=== PATIENT | male | born 1985 | race Hispanic/Latino ===

== ENCOUNTER 2018-04-21 20:52 | Inpatient (IN) | payer SELFPAY ==
[2018-04-21] MEDS ORDERED: Adacel (T-DAP) 0.5 ML VIAL ONE (21:26)
[2018-04-21] MEDS ORDERED: HYDROcodone/Acetaminophen 10/325 mg Tablet ONE (22:06)
--- NOTE | 2018-04-21 22:13 | RAD ---
THREE VIEWS RIGHT HAND: 04/21/18 HISTORY: Laceration to fingers of right hand. FINDINGS: No fracture or dislocation is seen. There are lucencies seen involving the proximal portions of the s econd through fourth fingers likely related to laceration. No radiopaque foreign body is seen. No oth er findings. IMPRESSION: Findings suggestive of laceration involving the second through fourth digits without evidence of an u nderlying fracture or radiopaque foreign body. POS: [facility]
[2018-04-21] MEDS ORDERED: Gentamicin 80 MG/2 ML VIAL ONE (22:19)
[2018-04-21] MEDS ORDERED: CEFAZOLIN/Water 2 GM/20 ML SYRINGE ONE (22:21)
[2018-04-21 22:41] LABS: #Basophils 0.1 thou/uL (0.0-0.2); #Eosinphils 0.1 thou/uL (0.0-0.7); #Lymphocytes 2.3 thou/uL (1.20-3.40); #Monocytes 0.5 thou/uL (0.11-0.59); #Neutrophils 6.4 thou/uL (1.40-6.50); %Basophils 0.6 % (0.0-1.0); %Lymphocytes 24.1 % (21.0-51.0); %Monocytes 5.7 % (0.0-10.0); %Neutrophils 68.7 % (42.0-75.0); Hemoglobin 16.3 g/dL (14.0-18.0); Mean Corpuscular HGB CONC 36.2 g/dL (32.0-36.0); Mean Corpuscular Hemoglobin 32.9 pg (27.0-31.0); Mean Corpuscular Volume 90.8 fL (78.0-98.0); Mean Platelet Volume 9.7 fL (7.4-10.4); Platelet Count 179 thou/uL (130-400); RBC Distribution Width 11.3 % (11.5-14.5); Red Blood Cell (RBC) Count 4.97 mill/uL (4.70-6.10); White Blood Cell (WBC) Count 9.3 thou/uL (4.8-10.8)
[2018-04-21] MEDS ORDERED: Fentanyl 100 MCG/2 ML VIAL ONE (22:47)
[2018-04-21 22:52] LABS: INR-International Normal Ratio 0.9; PTT 30.6 SEC (22.9-36.1); Prothrombin Time 12.7 SEC (12.0-14.7)
[2018-04-21 22:59] LABS: Anion Gap 11 mmol/L (10-20); BUN (Urea Nitrogen) 6 mg/dL (8.9-20.6); Calc. Creatinine Clearance 0 mL/min (70-130); Calcium 9.4 mg/dL (7.8-10.44); Carbon Dioxide 23 mmol/L (22-29); Chloride 108 mmol/L (98-107); Estimated GFR-MDRD 83; Glucose 97 mg/dL (70-105); Potassium 4.2 mmol/L (3.5-5.1); Sodium 138 mmol/L (136-145)
[2018-04-21] MEDS ORDERED: Gentamicin Sulfate 80 MG in Premix Bag 1 BAG IVPB SCH (23:00)
[2018-04-22] MEDS ORDERED: Bupivacaine 0.25% HCL 30 ML VIAL ONE
[2018-04-22] MEDS ORDERED: Sodium Chloride 0.9% 50 ML ONE
[2018-04-22] MEDS ORDERED: Bupivacaine PF 0.5% 30 ML VIAL ONE (00:01)
[2018-04-22] MEDS ORDERED: Fentanyl 100 MCG/2 ML VIAL ONE ×2 (00:54→02:54)
[2018-04-22] MEDS ORDERED: Bacitracin Zinc Ointment 30 gm TUBE ONE (03:24)
[2018-04-22] MEDS ORDERED: Meperidine HCl/PF 25 MG/ML VIAL ONE (03:57)
[2018-04-22] MEDS ORDERED: Morphine 4 MG/ML VIAL SLOW IVP PRN (04:01)
[2018-04-22] MEDS ORDERED: Acetaminophen 325 MG TAB PO PRN (04:01)
[2018-04-22] MEDS ORDERED: Promethazine HCl 25 MG/ML VIAL IM PRN (04:01)
[2018-04-22] MEDS ORDERED: Ondansetron ODT 4 MG TAB PO PRN (04:01)
[2018-04-22] MEDS ORDERED: Ketorolac Tromethamine 30 MG/ML VIAL IVP PRN (04:07)
[2018-04-22] MEDS ORDERED: Meperidine HCl/PF 25 MG/ML VIAL IM PRN (04:07)
[2018-04-22] MEDS ORDERED: Communication Order-Pharmacy FS SCH (04:15)
[2018-04-22] MEDS ORDERED: TETANUS AND DIPHTHERIA TOX/PF 0.5 ML DISP.SYRIN IM SCH (04:15)
[2018-04-22 04:38] LABS: Amphetamine Not Detected (NotDetected); Barbiturates Screen Not Detected (NotDetected); Benzodiazepine Screen Not Detected (NotDetected); Cocaine Metabolite Screen Not Detected (NotDetected); Medtox Control Line Valid? VALID (VALID); Medtox Reader # READER 4; Methadone Not Detected (NotDetected); Methamphetamine Not Detected (NotDetected); Opiate Screen Detected (NotDetected); Oxycodone Screen Not Detected (NotDetected); Phencyclidine (PCP) Not Detected (NotDetected); THC/Cannabinoid Screen Detected (NotDetected); Tricyclic Screen Not Detected (NotDetected)
[2018-04-22] MEDS ORDERED: Vancomycin HCl 1.5 GM in Sodium Chloride 0.9% 250 ML 300 ML IVPB SCH (06:15)
--- NOTE | 2018-04-22 09:48 | RAD ---
SINGLE VIEW CHEST: HISTORY: Hypoxia. COMPARISON: 06/24/2013 FINDINGS: Single view of the chest show normal sized cardiomediastinal silhouette. There is no evidence of cons olidation, mass, or pleural effusion. The bones are unremarkable. IMPRESSION: No evidence of acute cardiopulmonary disease. POS: [facility]
[2018-04-22] MEDS: HYDROcodone/Acetaminophen 5/325 mg Tablet PO PRN ×2 (10:24→14:53)
[2018-04-22] MEDS: Aspirin 81 mg Enteric Coated Tablet PO SCH ×2 (10:25→20:56)
[2018-04-22] MEDS ORDERED: Lidocaine 1% PF 5 ML VIAL ONE (11:54)
[2018-04-22] MEDS ORDERED: Ondansetron HCl/PF 4 MG/2 ML Vial ONE (11:54)
[2018-04-22] MEDS ORDERED: PROPOFOL 200 MG/20 ML VIAL ONE (11:54)
[2018-04-22] MEDS: Vancomycin HCl 1.5 GM in Sodium Chloride 0.9% 250 ML 300 ML IVPB SCH ×2 (14:52→21:54)
[2018-04-22] MEDS ORDERED: Sodium Chloride 0.9% 10 ML ONE (17:56)
[2018-04-23] MEDS: HYDROcodone/Acetaminophen 5/325 mg Tablet PO PRN ×2 (00:16→09:27)
[2018-04-23 05:31] LABS: Vancomycin, Trough 23.4 ug/mL
[2018-04-23 07:45] VITALS: BP 137/89; TEMP 99
[2018-04-23] MEDS ORDERED: Vancomycin HCl 1.5 GM in Sodium Chloride 0.9% 250 ML 300 ML IVPB SCH (12:00)
--- NOTE | 2018-04-23 21:12 | OP ---
DATE OF PROCEDURE: 04/22/2018 PREOPERATIVE DIAGNOSES: Multiple palmar and dorsal wounds; proximal phalanx small finger, ring finge r, middle finger and index finger, sizes as follows, 2.5 cm palmar, small finger; 3.0 cm palmar, ring finger; 3.0 cm palmar, middle finger; 3.5 cm palmar, index finger and all 1 cm dorsal of all four di gits. POSTOPERATIVE FINDINGS: 1. Multiple digit laceration with the following tendon injuries: Left index finger flexor digitorum superficialis, 50% laceration. 2. Left middle finger flexor digitorum superficialis laceration. 3. Left ring finger extensor tendon longitudinal laceration 1 cm zone 4 and left middle finger exten sor tendon laceration longitudinal 1 cm zone 4. 4. Minimal contamination seen except for the axis of the flexor tendon laceration where there was so me magnification. PROCEDURES PERFORMED: As follows: 1. At the left small finger: A. Dorsal wound debridement 1 cm. B. Probable debridement 1 cm. C. Total wound closure 3.5 cm. D. Radial and ulnar nerve neuroplasty under magnification. E. Microscopic neuroplasty radial and ulnar digital nerve. 2. At the left ring finger: A. Dorsal wound debridement 1.0 cm. B. Palmar wound debridement, 3.0 cm. C. Closure of wound total 4 cm, left ring finger. D. Repair common extensor tendon laceration, zone 4, dorsal ring finger, left. E. Microscopic neuroplasty radial and ulnar digital nerve. 3. At the middle finger: A. A 3-cm palmar wound debridement. B. A 1.0 cm dorsal wound debridement. C. Closure of 4 cm wound, complex. D. Left middle finger flexor digitorum superficialis laceration repair. E. Left ring finger extensor tendon zone 4 repair. F. Microscopic neuroplasty radial and ulnar digital nerve. 4. At the index finger: A. Debridement of wound, 4.5 cm total (3.5 cm palmar and 1.0 cm dorsal). B. Closure of wound total 4.5 cm complex. C. Index finger flexor digitorum superficialis laceration repair. D. Neuroplasty under magnification ulnar and radial digital nerve to the index finger. Debridement techniques for all were as follows: A. Excisional technique. B. Use of curette, rongeur [place] Elevator, tenotomy scissors, [place] blade, and 15 blade knif e. C. Depth was down to and including the tendon sheath where there were tendon sheath lacerations, but did not repair. All pulleys were grossly intact. ANESTHESIA: General LMA technique. TOURNIQUET TIME: Total 95 minutes. ESTIMATED BLOOD LOSS: Less than 50 mL. INDICATIONS: The patient had his hand caught in an industrial plastic recycling machine where he wor ks. He was wearing gloves. He was taken to the operating, because of gross contamination, resisted pain with flexion of the interphalangeal joints of the index finger and middle finger possible flexor digitorum partial laceration and the open wounds. operating room prior to 8 hours lapse in between the injury and procedure. Of note, there was no digital nerve laceration, small finger, ring finger, middle finger, and index finger. DESCRIPTION OF PROCEDURE: After successful general LMA technique, the limb was prepped and draped. We exsanguinated the limb. It was injected with a total of 30 mL of 0.5% Marcaine, and having a meta carpophalangeal joint block on the radial ulnar aspect of this joint for all four digits. Total of 3 0 mL were given before incision was made. After exsanguination of the limb and tourniquet being infl ated to 250 mmHg pressure on the palmar wounds, we extend the each wound 1 cm proximal and 1.5 cm dis tally in a Tiffany fashion. We dissected down and saw each digital nerve radial ulnar aspect of first index and the long and the ring and small finger. Once we did this, we then inspected the flexor te ndons and found that the only tendon laceration which was approximately 50% on the ulnar side, was th e flexor digitorum superficialis intact at all levels. Each lalo had laceration in his dist al 1-2 mm were resected longitudinal transverse. Once we finished doing the debridement using the reamer technique listed above, we then proceeded to mk that there was the index finger and mid dle finger ulnar-sided laceration, but over the 100% of the ulnar side, but 50% . Returned to the dorsal wound extended then 1 cm distal, 5 mm proximal in a zigzag Tiffany fashion as w ell and found longitudinal tear of the extensor mechanisms without any evidence of other abnor mality. We had completed the debridement, completed irrigation of a total of 5 mL normal saline. Now, we vis ualized the dorsal wound and then repaired with a running 5-0 Prolene. The longitudinal lacerations in zone 4 without complications. The repairs were accomplished with a [id number] and the flexor tendons direct visualizati on with the help of the assistant professor of forestry and two sutures were placed in each of the repairs and cut at a bel ow the level of the tendon sheath. Then, the dorsal repairs had been fitted with a 5-0 Prolene in a running fashion buried [id number] and they were cut. Now, with the tourniquet deflated, we obta ined hemostasis. All wounds were closed with simple 4-0 nylon interrupted simple pattern to include the digit palmar and the dorsal wounds were . The patient left the operating room without evid ence of anesthetic or operative complication. Once incisions were closed, the patient has had the wo und evaluated, had appropriate flexion cascade for all digits, digits were pink, we placed bacitracin , Adaptic, 4 x 4s, gauze and a bulky dressing style, leaving 1 cm of the tips visible for neurovascul ar evaluation and motion. Dorsal block splint was applied. There was a sugar tong type to immobiliz e the wrist and forearm and the patient left the operating room without evidence of anesthetic or ope rative complication.
== END 2018-04-23 09:40 | disposition home or self-care (01) | DRG 514 ==
LOC: ERS 20:52 → 3SE 04-22 04:01
PROVIDERS: ADMIT Orthopaedic Surgery Hand Surgery; ATTEND Orthopaedic Surgery Hand Surgery
PROC: 0LB80ZZ Excision of Left Hand Tendon, Open Approach (ICD-10-PCS; principal; 2018-04-22)
PROC: 01Q60ZZ Repair Radial Nerve, Open Approach (ICD-10-PCS; 2018-04-22)
PROC: 01Q40ZZ Repair Ulnar Nerve, Open Approach (ICD-10-PCS; 2018-04-22)
PROC: 0LQ80ZZ Repair Left Hand Tendon, Open Approach (ICD-10-PCS; 2018-04-22)
DX: S56.122A Laceration of flexor muscle, fascia and tendon of left index finger at forearm level, initial encounter (principal); S56.124A Laceration of flexor muscle, fascia and tendon of left middle finger at forearm level, initial encounter; S56.426A Laceration of extensor muscle, fascia and tendon of left ring finger at forearm level, initial encounter; S56.424A Laceration of extensor muscle, fascia and tendon of left middle finger at forearm level, initial encounter
CPT/HCPCS: 12002; 36416; 71045; 80048; 80202; 80306; 80307; 85025; 85610; 85730; 90471; 90715; 96365; 96375; A4216; J1580; J1885; J2001; J2175; J2270; J2405; J2704; J3010; J3370; J3490; J7050; S0020

== ENCOUNTER 2018-07-15 13:56 | Outpatient (CLI) | payer OTHER ==
--- NOTE | 2018-07-15 16:22 | MRI ---
MRI OF THE RIGHT HAND WITHOUT CONTRAST: 07/15/18 INDICATION: History of flexor tenosynovitis of the right fourth digit. COMPARISON: Right hand radiograph dated 04/21/18. FINDINGS: There is a small amount of fluid surrounding the flexor tendons of the long and ring finger at the le oanh of the metacarpal heads. No full thickness tendon disruption is evident. No bowstring is present. No definite volar plate or lalo injury is grossly evident. No definite drainable fluid collection is noted. The intrinsic hand musculature appears within normal limits. The visualized aspects of the ulnar and median nerves appear within normal limits. The FCR and FCU tendons appear within normal cordero its. The extensor tendons are normal appearing. Visualized aspects of the scapholunate and lunatotriq uetral ligament appears within normal limits. Subchondral cyst-like abnormality seen on the volar asp ect of the lunate. IMPRESSION: Mild flexor tenosynovitis of the long and ring finger at the level of the metacarpal heads without ev idence of tendon disruption or definite lalo injury. POS: [facility]
== END 2018-07-15 13:57 | disposition home or self-care (01) ==
LOC: BICMRI 13:56
PROVIDERS: ATTEND Orthopaedic Surgery Hand Surgery
DX: S56.021A Laceration of flexor muscle, fascia and tendon of right thumb at forearm level, initial encounter (principal); M65.9 Synovitis and tenosynovitis, unspecified